=== PATIENT | female | born 1980 | race Caucasian/White ===

== ENCOUNTER 2018-06-08 10:14 | Day surgery (SDC) | payer BC ==
[~2018-06-08 10:14] MED LIST: Doxycycline 100 MG Cap PO ONE
--- NOTE | 2018-06-08 11:06 | PCM.PREANE ---
Preanesthetic Assessment - Anesthesia/Transfusion/Family Hx Anesthesia History: Prior Anesthesia Without Reaction Family History of Anesthesia Reaction: No Transfusion History: No Prior Transfusion(s) Intubation History: Unknown - Review of Systems General: No Symptoms Pulmonary: No Symptoms Cardiovascular: No Symptoms Gastrointestinal: No Symptoms Neurological: No Symptoms Other: Reports: None - Physical Assessment O2 Sat by Pulse Oximetry: 100 Respiratory Rate: 16 Vital Signs: Last Vital Signs Temp 36.4 C 06/08/18 10:31 Pulse 81 06/08/18 10:31 Resp 16 06/08/18 10:31 BP 129/74 06/08/18 10:31 Pulse Ox 100 06/08/18 10:31 Height: 1.73 m Weight: 101.151 kg ASA Class: 2 Mental Status: Alert & Oriented x3 Airway Class: Mallampati = 2 Dentition: Reports: Normal Dentition Thyro-Mental Finger Breadths: 3 Mouth Opening Finger Breadths: 3 ROM/Head Extension: Full Lungs: Clear to Auscultation, Normal Respiratory Effort Cardiovascular: Regular Rate, Regular Rhythm - Lab Values: Laboratory Last Values WBC 7.46 K/uL (4.0-11.0) 06/08/18 10:43 RBC 4.24 M/uL (4.30-5.90) L 06/08/18 10:43 Hgb 13.0 g/dL (12.0-16.0) 06/08/18 10:43 Hct 38.6 % (36.0-46.0) 06/08/18 10:43 MCV 91.0 fL (80.0-98.0) 06/08/18 10:43 MCH 30.7 pg (27.0-32.0) 06/08/18 10:43 MCHC 33.7 g/dL (31.0-37.0) 06/08/18 10:43 RDW Std Deviation 43.1 fl (28.0-62.0) 06/08/18 10:43 RDW Coeff of Velia 13 % (11.0-15.0) 06/08/18 10:43 Plt Count 262 K/uL (150-400) 06/08/18 10:43 MPV 9.10 fL (7.40-12.00) 06/08/18 10:43 Neut % (Auto) 61.4 % (48.0-80.0) 06/08/18 10:43 Lymph % (Auto) 29.1 % (16.0-40.0) 06/08/18 10:43 Mathews % (Auto) 7.6 % (0.0-15.0) 06/08/18 10:43 Eos % (Auto) 1.6 % (0.0-7.0) 06/08/18 10:43 Baso % (Auto) 0.3 % (0.0-1.5) 06/08/18 10:43 Neut # (Auto) 4.6 K/uL (1.4-5.7) 06/08/18 10:43 Lymph # (Auto) 2.2 K/uL (0.6-2.4) 06/08/18 10:43 Mathews # (Auto) 0.6 K/uL (0.0-0.8) 06/08/18 10:43 Eos # (Auto) 0.1 K/uL (0.0-0.7) 06/08/18 10:43 Baso # (Auto) 0.0 K/uL (0.0-0.1) 06/08/18 10:43 Nucleated RBC % 0.0 /100WBC 06/08/18 10:43 Nucleated RBCs # 0 K/uL 06/08/18 10:43 - Allergies Allergies/Adverse Reactions: Allergies Allergy/AdvReac Type Severity Reaction Status Date / Time No Known Allergies Allergy Verified 06/05/18 12:48 - Blood Blood Available: No - Anesthesia Plan Pre-Op Medication Ordered: None - Acknowledgements Anesthesia Type Planned: General Anesthesia Pt an Appropriate Candidate for the Planned Anesthesia: Yes Alternatives and Risks of Anesthesia Discussed w Pt/Guardian: Yes Pt/Guardian Understands and Agrees with Anesthesia Plan: Yes 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: , Spontaneous Psychiatric History: Reports: Anxiety Endocrine/Metabolic History: Reports: Hypothyroidism, Obesity/BMI 30+ - Past Surgical History HEENT Surgical History: Reports: Tonsillectomy GI Surgical History: Reports: Appendectomy, Bariatric Procedure, Other (See Below) Other GI Surgeries/Procedures: Lap band bariatric surgery- band removed 2 years later Female Surgical History: Reports: Dilitation & Evacuation (x2) Musculoskeletal Surgical History: Reports: Other (See Below) Other Musculoskeletal Surgeries/Procedures:: repair of dislocated knee, partial dislocation of other knee - SUBSTANCE USE Smoking Status *Q: Never Smoker Recreational Drug Use History: No - HOME MEDS Home Medications: Home Meds Acetaminophen [Tylenol] 325 mg PO TID PRN 06/05/18 [History] Doxylamine Succinate [Unisom] 25 mg PO BEDTIME PRN 06/05/18 [History] Escitalopram [Lexapro] 10 mg PO DAILY 06/05/18 [History] Levothyroxine Sodium [Synthroid] 25 mcg PO DAILY 06/05/18 [History] Pnv No.95/Ferrous Fum/Folic AC [ Caplet] 1 tab PO DAILY 06/05/18 [ History] Vitamin B6-pyridOXINE 100 mg PO DAILY 06/05/18 [History] - CURRENT (IN HOUSE) MEDS Current Meds: Current Medications Discontinued Medications Doxycycline Hyclate (Vibramycin) 200 mg PO ONETIME ONE Stop: 06/08/18 09:13 Last Admin: 06/08/18 10:38 Dose: 200 mg
[2018-06-08] MEDS ORDERED: Methylergonovine 0.2 MG/1 ML Amp ONE (13:04)
[2018-06-08] MEDS ORDERED: Misoprostol 200 MCG Tab ONE (13:10)
--- NOTE | 2018-06-08 13:44 | PCM.OPNOTE ---
- General Post-Op/Procedure Note Date of Surgery/Procedure: 06/08/18 Operative Procedure(s): Suction , Dilatation and Currettage Findings: Moderate amount of POC and Bleeding noted Due to bleeding Methergine given and also Cytotec 600mcg per rectum Pre Op Diagnosis: Missed Post-Op Diagnosis: Missed Anesthesia Technique: Other (see below) (General) Primary Surgeon: Campbell Caceres Pathology: product of conception also sent for karyotype and microarray Fluid Replacement, Intraop: 1,200 EBL in mLs: 400 Complications: None Condition: Good
[2018-06-08] MEDS ORDERED: Ondansetron 4 MG/2 ML SDV ONE (13:46)
[2018-06-08] MEDS ORDERED: Lidocaine 2% 5 ML SDV ONE (13:46)
[2018-06-08] MEDS ORDERED: Acetaminophen/oxyCODONE 325-5 MG Tab PO PRN (13:46)
[2018-06-08] MEDS ORDERED: Midazolam 1 MG/ML 2 ML SDV ONE (13:46)
[2018-06-08] MEDS ORDERED: fentaNYL 100 MCG/2 ML SDV ONE (13:46)
[2018-06-08] MEDS ORDERED: Propofol 200 MG/20 ML SDV ONE (13:46)
[2018-06-08] MEDS ORDERED: ePHEDrine 50 MG/ML SDV ONE (13:46)
--- NOTE | 2018-06-08 14:03 | PCM.POSTAN ---
POST ANESTHESIA ASSESSMENT - MENTAL STATUS Mental Status: Alert, Oriented - RESPIRATORY Respiratory Status: Respiratory Rate WNL, Airway Patent, O2 Saturation Stable - CARDIOVASCULAR CV Status: Pulse Rate WNL, Blood Pressure Stable - GASTROINTESTINAL GI Status: No Symptoms - PAIN Pain Score: 0 - POST OP HYDRATION Hydration Status: Adequate & Stable
--- NOTE | 2018-06-09 12:30 | OR ---
SURGEON: HALIE DRUMMOND DATE OF PROCEDURE: 06/08/2018 PREOPERATIVE DIAGNOSES: 37-year-old with missed . POSTOPERATIVE DIAGNOSIS: 37-year-old with missed . PROCEDURE: Suction dilatation and curettage. IV FLUIDS: 1200. ESTIMATED BLOOD LOSS: 400. FINDINGS: An 8-week sized anteverted uterus. Suction yielded moderate amount of products of conception. She had some bleeding afterwards, she was given Methergine IM and also given Cytotec. The patient tolerated the procedure well. BRIEF HISTORY: She is 37-year-old with a history of recurrent miscarriages. She came in for a routine OB visit and felt she was not dated properly based on previous USS and requested an ultrasound. She had an ultrasound done that showed only gestational sac, no IUP. She had an ultrasound done previously that showed an IUP. As a result of this, she was diagnosed as having a missed . She was counseled for options, which include conservative management versus medical management versus surgery. The patient opted for surgery. She was explained the risks, benefits, and alternatives and she desired to proceed. DESCRIPTION OF PROCEDURE: The patient was taken to the operating room where general anesthesia was performed without difficulty. She was prepared and draped in the dorsal lithotomy position with Jay stirrups. The speculum was used to expose the cervix. The tenaculum was used to grasp the anterior lip of the cervix. The cervix was dilated to accommodate the size 9 curved curette. The curette was connected to a suction pump and suction was done in rotative motion. Then, a size 4 sharp curette was used, which was used to curette all the corners of the uterus. Then, the suction was then placed back in and suction was done. The patient was noted to have some bleeding and Methergine was given. Also Cytotec was given. The patient tolerated the procedure well. All instrument and pad counts were correct x2. The patient was taken to the recovery room in stable condition. MOHIT BARRERA /[id number] MTDD
== END 2018-06-08 15:01 | disposition home or self-care (01) ==
LOC: MW.SDS 10:14
PROVIDERS: ATTEND Obstetrics & Gynecology
DX: O02.1 Missed abortion (principal); E03.9 Hypothyroidism, unspecified; F41.9 Anxiety disorder, unspecified; Z79.899 Other long term (current) drug therapy
CPT/HCPCS: 36415; 59820; 85025; 86850; 86900; 86901; 88233; 88305; A9270; J2001; J2210; J2250; J2405; J2704; J3010; 01965

== ENCOUNTER 2019-02-09 10:09 | Day surgery (SDC) | payer BC ==
[2019-02-09] MEDS ORDERED: Doxycycline 200 MG in Dextrose 5% in Water 250 ML IV SCH ×2 (11:00)
[2019-02-09] MEDS ORDERED: Lactated Ringers 1,000 ML IV SCH (11:00)
--- NOTE | 2019-02-09 11:21 | PCM.PREANE ---
Preanesthetic Assessment - Anesthesia/Transfusion/Family Hx Anesthesia History: Prior Anesthesia Without Reaction Family History of Anesthesia Reaction: No Transfusion History: No Prior Transfusion(s) Intubation History: Unknown - Review of Systems General: No Symptoms Pulmonary: No Symptoms Cardiovascular: No Symptoms Gastrointestinal: No Symptoms Neurological: No Symptoms Other: Reports: None - Physical Assessment Height: 5 ft 10 in Weight: 99.79 kg ASA Class: 2 Mental Status: Alert & Oriented x3 Airway Class: Mallampati = 2 Dentition: Reports: Normal Dentition Thyro-Mental Finger Breadths: 3 Mouth Opening Finger Breadths: 3 ROM/Head Extension: Full Lungs: Clear to Auscultation, Normal Respiratory Effort Cardiovascular: Regular Rate, Regular Rhythm - Allergies Allergies/Adverse Reactions: Allergies Allergy/AdvReac Type Severity Reaction Status Date / Time metal Allergy Rash Uncoded 02/09/19 11:02 - Blood Blood Available: No - Anesthesia Plan Pre-Op Medication Ordered: None - Acknowledgements Anesthesia Type Planned: General Anesthesia Pt an Appropriate Candidate for the Planned Anesthesia: Yes Alternatives and Risks of Anesthesia Discussed w Pt/Guardian: Yes Pt/Guardian Understands and Agrees with Anesthesia Plan: Yes 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 band placement and removal) Female Surgical History: Reports: D&C (x3) Other Female Surgeries/Procedures: hx of multiple D&C's Musculoskeletal Surgical History: Reports: Other (See Below) Other Musculoskeletal Surgeries/Procedures:: bilateral knee surgeries, ? patella stabilization - SUBSTANCE USE Smoking Status *Q: Never Smoker Recreational Drug Use History: No - HOME MEDS Home Medications: Home Meds Escitalopram [Lexapro] 20 mg PO DAILY 30 Days #30 tablet 06/08/18 [Rx] Levothyroxine 150 mcg PO DAILY 02/09/19 [History] - CURRENT (IN HOUSE) MEDS Current Meds: Current Medications Doxycycline Hyclate 200 mg/ (Dextrose/Water) 250 mls @ 125 mls/hr IV Q12H RIKY Lactated Ringer's (Ringers, Lactated) 1,000 mls @ 125 mls/hr IV ASDIRECTED RIKY
[2019-02-09] MEDS ORDERED: Propofol 200 MG/20 ML SDV ONE (11:48)
[2019-02-09] MEDS ORDERED: Dexamethasone 4 MG/ML 5 ML MDV ONE (11:48)
[2019-02-09] MEDS ORDERED: Ondansetron 4 MG/2 ML SDV ONE (11:48)
[2019-02-09] MEDS ORDERED: fentaNYL 250 MCG/5 ML SDV ONE (11:48)
[2019-02-09] MEDS ORDERED: Midazolam 1 MG/ML 2 ML SDV ONE (11:48)
[2019-02-09] MEDS ORDERED: Sodium Chloride 0.9% 10 ML SDV IV PRN (12:14)
[2019-02-09] MEDS ORDERED: Sodium Chloride 0.9% 2.5 ML Syringe FLUSH PRN (12:14)
[2019-02-09] MEDS ORDERED: Sodium Chloride 0.9% 10 ML Syringe FLUSH PRN (12:14)
[2019-02-09] MEDS ORDERED: Ketorolac 30 MG/ML SDV ONE (12:25)
[2019-02-09] MEDS ORDERED: Acetaminophen/oxyCODONE 325-5 MG Tab PO PRN (13:19)
[2019-02-09] MEDS ORDERED: Morphine 4 MG/ML Syringe IVPUSH PRN (13:19)
[2019-02-09] MEDS ORDERED: Ketorolac 30 MG/ML SDV IVPUSH ONE (13:19)
[2019-02-09] MEDS ORDERED: Ketorolac 30 MG/ML SDV IVPUSH PRN (13:19)
[2019-02-09] MEDS ORDERED: Ondansetron 4 MG/2 ML SDV IVPUSH PRN (13:19)
[2019-02-09] MEDS ORDERED: Promethazine 25 MG/ML SDV IM PRN (13:19)
[2019-02-09] MEDS ORDERED: Hetastarch 6% in NS 500 ML Bag IV ONE (13:29)
[2019-02-09] MEDS ORDERED: Glycopyrrolate 0.2 MG/ML SDV ONE (13:53)
[2019-02-09] MEDS ORDERED: Methylergonovine 0.2 MG/1 ML Amp IM ONE ×2 (14:04→15:01)
--- NOTE | 2019-02-09 14:13 | PCM.OPNOTE ---
- General Post-Op/Procedure Note Date of Surgery/Procedure: 02/09/19 Operative Procedure(s): Suction , Dilatation and curettage Findings: Product of conception 8 week sized anteverted uterus Pre Op Diagnosis: Missed Post-Op Diagnosis: Missed Anesthesia Technique: General ET Tube Primary Surgeon: Campbell Caceres Anesthesia Provider: Jeanie CEBALLOS Stacker Tender: Mary Jane HEIN Pathology: Product of conception Output, Urine Amount: 800 EBL in mLs: 500 Complications: None Condition: Good
--- NOTE | 2019-02-09 14:21 | PCM.SN ---
- Free Text/Narrative Note: Informed by PACU that i should come to evaluate patient Patient seen at bedside , Aneasthesia team , Dr Le and Jaxson with patient Patient is hypotensive with Bps of 70s - 80s/ 30 - 40s O sat: 100% HR: 61 Exam: General: responding to conversation but lethargic Chest: CTA BL CVS: S1 S2 no murmurs Abdomen; Flat , soft and non-distended or tender Pelvic: 8 week sized anteverted uterus , no active bleeding Stat USS ordered: Normal appearing uterus, Endometrium slightly heterogenous with fluid with No fluid noted in the anterior or posterior cul-de- sac , No fluid in the sanchez's pouch A/P Hypotension s/p D & C Plan Continue IVF bolus Type and Cross , will give O negative blood Monitor vital signs , if still hypotensive will give vasopressors H & H Will transfer to ICU when stable
[2019-02-09 14:26] LABS: BLOOD UREA NITROGEN,BUN 10 mg/dL (7.0-18.0); CARBON DIOXIDE,CO2 22.9 mmol/L (21.0-32.0); CHLORIDE,CL 105 mmol/L (98-107); GLUCOSE RANDOM 111 mg/dL (74-106); SODIUM,NA 137 mmol/L (136-145)
--- NOTE | 2019-02-09 14:29 | US ---
EXAM DATE: 02/09/19 PATIENT'S AGE: 38 Pelvic ultrasound: Multiple real-time images were obtained transvaginally. Findings: No ascites is seen. Minimal fluid is seen within the endometrial cavity. No focal myometrial abnormality is seen. Impression: 1. Small amount of fluid within the endometrium most likely due to blood. 2. No ascites is seen. Diagnostic code #2 MTDD
--- NOTE | 2019-02-09 14:45 | PCM.SN ---
- Free Text/Narrative Note: Called by COMMUNITY SERVICES MANAGER Lucy to evaluate the patient. On arrival the pt is visually pale, lethargic, and diaphoretic. VS HR 50's, SBP 70-80's, SpO2 92% on RA, RR 12. Hespan 250mL IV ordered, 18g IV started to Rt EJ; 12mL of blood was drawn at this time for lab studies, NS 1000mL bolus running. Dr Caceres was called STAT to PACU to evaluate the patient. On her arrival STAT ultrasound was performed in PACU, and Dr Caceres ordered 1 units PRBC uncrossed matched to be given now. Transexamic acid 1gram slow IVP given. Currently, the patient appears much better. Her cheeks are pink, she feels less lethargic, and no nausea. VS - 64 SR, RR 14, SpO2 - 100% on NC at 3 LPM, SBP 90's for the last [address] Caceres decision on admission status.
--- NOTE | 2019-02-09 14:50 | PCM.POSTAN ---
POST ANESTHESIA ASSESSMENT - MENTAL STATUS Mental Status: Alert, Oriented - VITAL SIGNS Vital Signs: Last Vital Signs Temp 97.0 F 02/09/19 13:01 Pulse 61 02/09/19 14:36 Resp 14 02/09/19 14:36 BP 100/47 L 02/09/19 14:36 Pulse Ox 100 02/09/19 14:36 - RESPIRATORY Respiratory Status: Respiratory Rate WNL, Airway Patent, O2 Saturation Stable - CARDIOVASCULAR CV Status: Pulse Rate WNL, Blood Pressure Stable, Low Blood Pressure (See Progress Note) - GASTROINTESTINAL GI Status: No Symptoms - PAIN Pain Score: 0 - POST OP HYDRATION Hydration Status: Adequate & Stable
[2019-02-09] MEDS ORDERED: Sodium Chloride 0.9% 1,000 ML IV SCH (15:30)
[2019-02-09 16:36] LABS: BLOOD UREA NITROGEN,BUN 10 mg/dL (7.0-18.0); CARBON DIOXIDE,CO2 23.6 mmol/L (21.0-32.0); CHLORIDE,CL 105 mmol/L (98-107); GLUCOSE RANDOM 96 mg/dL (74-106); POTASSIUM,K 4.1 mmol/L (3.5-5.1); SODIUM,NA 138 mmol/L (136-145)
--- NOTE | 2019-02-09 16:59 | PCM48HPAN ---
Post Anesthesia Note - EVALUATION WITHIN 48HRS OF ANESTHETIC Vital Signs in Normal Range: Yes Patient Participated in Evaluation: Yes Respiratory Function Stable: Yes Airway Patent: Yes Cardiovascular Function Stable: Yes Hydration Status Stable: Yes Pain Control Satisfactory: Yes Nausea and Vomiting Control Satisfactory: Yes Mental Status Recovered: Yes Vital Signs: Last Vital Signs Temp 97.2 F 02/09/19 15:10 Pulse 65 02/09/19 15:10 Resp 14 02/09/19 15:10 BP 94/37 L 02/09/19 15:10 Pulse Ox 100 02/09/19 15:10 - COMMENTS/OBSERVATIONS Free Text/Narrative:: Patient appears much better this evening and states she is feeling much better. While at the bedside I had nursing check a set of orthostatic vital signs. Her standing BP was 111/52. I explained to the patient that after reviewing all the lab data that she may have had a severe hypotension episode due to the Cytotec that she received at the end of the procedure. The patient expressed understanding.
[2019-02-09] MEDS: Acetaminophen/oxyCODONE 325-5 MG Tab PO PRN ×2 (17:00→21:38)
[2019-02-09] MEDS ORDERED: Doxycycline 100 MG Cap PO ONE (18:30)
--- NOTE | 2019-02-10 08:13 | PCM.PN ---
<Mary Jane Jovel E - Last Filed: 02/10/19 08:25> - General Info Date of Service: 02/10/19 Admission Dx/Problem (Free Text): s/p D & C after missed Subjective Update: Juju is doing well this AM. States she is feeling fine and is ready to get home. Per pt and nurse report, pt ambulated 5 laps around ICU and denied any lightheadedness or dizziness during ambulation. Urinating well. Has not eaten since yesterday so is very hungry. Bleeding is minimal per nurse and pt report Functional Status: Reports: Pain Controlled, Ambulating, Urinating, Incentive Spirometry - Review of Systems General: Reports: Fatigue. Denies: Fever, Weakness, Chills HEENT: Denies: Visual Changes Pulmonary: Denies: Shortness of Breath Cardiovascular: Denies: Chest Pain, Lightheadedness Gastrointestinal: Denies: Abdominal Pain Genitourinary: Denies: Dysuria Neurological: Denies: Confusion, Dizziness, Headache, Numbness, Tingling Psychiatric: Denies: Confusion - Patient Data Vitals - Most Recent: Last Vital Signs Temp 36.4 C 02/10/19 06:37 Pulse 65 02/09/19 15:10 Resp 14 02/10/19 06:37 BP 106/55 L 02/10/19 06:37 Pulse Ox 96 02/10/19 06:37 Weight - Most Recent: 98.6 kg I&O - Last 24 Hours: Intake & Output 02/09/19 02/10/19 02/10/19 22:59 06:59 14:59 Intake Total 144 2600 Output Total 750 2300 Balance -606 300 Lab Results Last 24 Hours: Laboratory Results - last 24 hr 02/09/19 02/09/19 02/09/19 Range/Units 11:08 13:40 13:40 WBC 6.58 (4.0-11.0) K/uL RBC 3.98 L (4.30-5.90) M/uL Hgb 12.2 (12.0-16.0) g/dL Hct 36.1 (36.0-46.0) % MCV 90.7 (80.0-98.0) fL MCH 30.7 (27.0-32.0) pg MCHC 33.8 (31.0-37.0) g/dL RDW Std Deviation 42.7 (28.0-62.0) fl RDW Coeff of Velia 13 (11.0-15.0) % Plt Count 247 (150-400) K/uL MPV 9.40 (7.40-12.00) fL Neut % (Auto) (48.0-80.0) % Lymph % (Auto) (16.0-40.0) % [place] % (Auto) (0.0-15.0) % Eos % (Auto) (0.0-7.0) % Baso % (Auto) (0.0-1.5) % Neut # (Auto) (1.4-5.7) K/uL Lymph # (Auto) (0.6-2.4) K/uL [place] # (Auto) (0.0-0.8) K/uL Eos # (Auto) (0.0-0.7) K/uL Baso # (Auto) (0.0-0.1) K/uL Nucleated RBC % 0.0 /100WBC Nucleated RBCs # 0 K/uL Sodium (136-145) mmol/L Potassium (3.5-5.1) mmol/L Chloride (98-107) mmol/L Carbon Dioxide (21.0-32.0) mmol/L BUN (7.0-18.0) mg/dL Creatinine (0.6-1.0) mg/dL Est Cr Clr Drug Dosing mL/min Estimated GFR (MDRD) ml/min Glucose (74-106) mg/dL Calcium (8.5-10.1) mg/dL Blood Type Cancelled O POSITIVE Antibody Screen Cancelled NEGATIVE Crossmatch See Detail See Detail 02/09/19 02/09/19 02/09/19 Range/Units 13:44 13:44 16:03 WBC 8.56 (4.0-11.0) K/uL RBC 3.43 L (4.30-5.90) M/uL Hgb 10.5 L 12.5 (12.0-16.0) g/dL Hct 31.2 L 37.4 (36.0-46.0) % MCV 91.0 (80.0-98.0) fL MCH 30.6 (27.0-32.0) pg MCHC 33.7 (31.0-37.0) g/dL RDW Std Deviation 43.1 (28.0-62.0) fl RDW Coeff of Velia 13 (11.0-15.0) % Plt Count 254 (150-400) K/uL MPV 9.70 (7.40-12.00) fL Neut % (Auto) 58.5 (48.0-80.0) % Lymph % (Auto) 33.2 (16.0-40.0) % [place] % (Auto) 6.8 (0.0-15.0) % Eos % (Auto) 1.3 (0.0-7.0) % Baso % (Auto) 0.2 (0.0-1.5) % Neut # (Auto) 5.0 (1.4-5.7) K/uL Lymph # (Auto) 2.8 H (0.6-2.4) K/uL [place] # (Auto) 0.6 (0.0-0.8) K/uL Eos # (Auto) 0.1 (0.0-0.7) K/uL Baso # (Auto) 0.0 (0.0-0.1) K/uL Nucleated RBC % 0.0 /100WBC Nucleated RBCs # 0 K/uL Sodium 137 (136-145) mmol/L Potassium 4.0 (3.5-5.1) mmol/L Chloride 105 (98-107) mmol/L Carbon Dioxide 22.9 (21.0-32.0) mmol/L BUN 10 (7.0-18.0) mg/dL Creatinine 0.6 (0.6-1.0) mg/dL Est Cr Clr Drug Dosing 140.17 mL/min Estimated GFR (MDRD) > 60.0 ml/min Glucose 111 H (74-106) mg/dL Calcium 7.9 L (8.5-10.1) mg/dL Blood Type Antibody Screen Crossmatch 02/09/19 02/10/19 Range/Units 16:03 05:48 WBC (4.0-11.0) K/uL RBC (4.30-5.90) M/uL Hgb 10.4 L (12.0-16.0) g/dL Hct 30.8 L (36.0-46.0) % MCV (80.0-98.0) fL MCH (27.0-32.0) pg MCHC (31.0-37.0) g/dL RDW Std Deviation (28.0-62.0) fl RDW Coeff of Velia (11.0-15.0) % Plt Count (150-400) K/uL MPV (7.40-12.00) fL Neut % (Auto) (48.0-80.0) % Lymph % (Auto) (16.0-40.0) % [place] % (Auto) (0.0-15.0) % Eos % (Auto) (0.0-7.0) % Baso % (Auto) (0.0-1.5) % Neut # (Auto) (1.4-5.7) K/uL Lymph # (Auto) (0.6-2.4) K/uL [place] # (Auto) (0.0-0.8) K/uL Eos # (Auto) (0.0-0.7) K/uL Baso # (Auto) (0.0-0.1) K/uL Nucleated RBC % /100WBC Nucleated RBCs # K/uL Sodium 138 (136-145) mmol/L Potassium 4.1 (3.5-5.1) mmol/L Chloride 105 (98-107) mmol/L Carbon Dioxide 23.6 (21.0-32.0) mmol/L BUN 10 (7.0-18.0) mg/dL Creatinine 0.7 (0.6-1.0) mg/dL Est Cr Clr Drug Dosing 120.15 mL/min Estimated GFR (MDRD) > 60.0 ml/min Glucose 96 (74-106) mg/dL Calcium 7.8 L (8.5-10.1) mg/dL Blood Type Antibody Screen Crossmatch Med Orders - Current: Current Medications Sodium Chloride (Normal Saline) 1,000 mls @ 125 mls/hr IV ASDIRECTED [facility] Last Admin: 02/09/19 15:31 Dose: 125 mls/hr Ketorolac Tromethamine (Toradol) 30 mg IVPUSH Q6H PRN PRN Reason: Pain (severe 7-10) Stop: 02/14/19 13:20 Morphine Sulfate (Morphine) 4 mg IVPUSH Q2H PRN PRN Reason: Pain (severe 7-10) Ondansetron HCl (Zofran) 4 mg IVPUSH Q6H PRN PRN Reason: Nausea/Vomiting Oxycodone/Acetaminophen (Percocet 325-5 Mg) 1 tab PO Q4H PRN PRN Reason: Pain (moderate 4-6) Oxycodone/Acetaminophen (Percocet 325-5 Mg) 2 tab PO Q4H PRN PRN Reason: Pain (moderate 4-6) Last Admin: 02/09/19 21:38 Dose: 2 tab Promethazine HCl (Phenergan) 25 mg IM Q6H PRN PRN Reason: Nausea/Vomiting Sodium Chloride (Saline Flush) 10 ml FLUSH ASDIRECTED PRN PRN Reason: Keep Vein Open Sodium Chloride (Saline Flush) 2.5 ml FLUSH ASDIRECTED PRN PRN Reason: Keep Vein Open Sodium Chloride (Normal Saline) 10 ml IV ASDIRECTED PRN PRN Reason: IV Use Discontinued Medications Dexamethasone (Dexamethasone) Confirm Administered Dose 20 mg .ROUTE .STK-MED ONE Stop: 02/09/19 11:49 Doxycycline Hyclate (Vibramycin) 100 mg PO ONETIME ONE Stop: 02/09/19 18:31 Last Admin: 02/09/19 18:16 Dose: 100 mg Fentanyl (Sublimaze) Confirm Administered Dose 250 mcg .ROUTE .STK-MED ONE Stop: 02/09/19 11:49 Glycopyrrolate (Robinul) Confirm Administered Dose 0.6 mg .ROUTE .STK-MED ONE Stop: 02/09/19 13:54 Hetastarch/Sodium Chloride (Hetastarch 6% In Normal Saline) 500 ml IV ONETIME ONE Stop: 02/09/19 13:30 Last Admin: 02/09/19 15:55 Dose: Not Given Doxycycline Hyclate 200 mg/ (Dextrose/Water) 250 mls @ 125 mls/hr IV Q12H [facility] Last Admin: 02/09/19 15:22 Dose: Not Given Lactated Ringer's (Ringers, Lactated) 1,000 mls @ 125 mls/hr IV ASDIRECTED [facility] Last Admin: 02/09/19 11:00 Dose: 125 mls/hr Ketorolac Tromethamine (Toradol) Confirm Administered Dose 30 mg .ROUTE .STK- MED ONE Stop: 02/09/19 12:26 Ketorolac Tromethamine (Toradol) 30 mg IVPUSH ONETIME ONE Stop: 02/09/19 13:20 Last Admin: 02/09/19 15:22 Dose: Not Given Lidocaine HCl (Xylocaine-Mpf 1%) Confirm Administered Dose 5 ml .ROUTE .STK-MED ONE Stop: 02/09/19 11:49 Methylergonovine Maleate (Methergine) 0.2 mg IM Q4H ONE Stop: 02/09/19 14:05 Last Admin: 02/09/19 14:24 Dose: 0.2 mg Midazolam HCl (Versed 1 Mg/Ml) Confirm Administered Dose 2 mg .ROUTE .STK-MED ONE Stop: 02/09/19 11:49 Ondansetron HCl (Zofran) Confirm Administered Dose 4 mg .ROUTE .STK-MED ONE Stop: 02/09/19 11:49 Propofol (Diprivan 20 Ml) Confirm Administered Dose 200 mg .ROUTE .STK-MED ONE Stop: 02/09/19 11:49 Tranexamic Acid (Cyklokapron) Confirm Administered Dose 1,000 mg .ROUTE .STK- MED ONE Stop: 02/09/19 13:46 - Exam General: Alert, Oriented, Cooperative, No Acute Distress HEENT: Pupils Equal, Pupils Reactive, EOMI, Mucous Membr. Moist/Comobabi Neck: Supple Lungs: Clear to Auscultation, Normal Respiratory Effort Cardiovascular: Regular Rate, Regular Rhythm GI/Abdominal Exam: Soft, Non-Tender, No Distention (Female) Exam: Other (Uterus difficult to palpate on exam, no tenderness to palpation) Skin: Warm, Dry, Intact Neurological: No New Focal Deficit Psy/Mental Status: Alert, Normal Affect, Normal Mood - Problem List & Annotations (1) Missed SNOMED Code(s): 51595970 Code(s): O02.1 - MISSED Status: Acute Current Visit: Yes - Problem List Review Problem List Initiated/Reviewed/Updated: Yes - Assessment Assessment:: Juju is a 38 yo G7 now P2052 post-op day 1 s/p D&C after missed . Patient became hypotensive a few hours post-D&C yesterday with BPs in the 70s - 80s/ 30 - 40s, saturating at 100% O2 on RA with HR in the 60s. Bedside ultrasound did not show any free fluid in the anterior or posterior cul-de-sacs or Nolan's pouch. She was given blood products and fluid at that time. H/H done after administration of blood products was 12.5/37.4. This morning's H/H is down to 10.4/30.8 and BPs is 106/55. Pt reports scant bleeding and is asymptomatic. We observed her overnight in the ICU. - Plan Plan:: Patient is hemodynamically stable at this time with BP back at her baseline and regular HR. Discharge today. Precautions to return to care if she becomes lightheaded, dizzy , SOB, fever over 101F, rigid and tender abdomen, painful abdomen. Pain can be managed with Tylenol and/or ibuprofen at home PRN. Tylenol PM appropriate for sleep aid. Follow up in clinic with Dr. Mccracken in 2 weeks. <Campbell Caceres - Last Filed: 02/10/19 09:00> - General Info Subjective Update: Patient seen at bedside , no acute overnight events , she is ambulating , voiding and tolerating regular diet , bleeding is minimal - Patient Data Vitals - Most Recent: Last Vital Signs Temp 37.0 C 02/10/19 08:54 Pulse 84 02/10/19 08:54 Resp 20 02/10/19 08:54 BP 116/59 L 02/10/19 08:54 Pulse Ox 97 02/10/19 08:54 I&O - Last 24 Hours: Intake & Output 02/09/19 02/10/19 02/10/19 22:59 06:59 14:59 Intake Total 144 2600 Output Total 750 2300 Balance -606 300 Lab Results Last 24 Hours: Laboratory Results - last 24 hr 02/09/19 02/09/19 02/09/19 Range/Units 11:08 13:40 13:40 WBC 6.58 (4.0-11.0) K/uL RBC 3.98 L (4.30-5.90) M/uL Hgb 12.2 (12.0-16.0) g/dL Hct 36.1 (36.0-46.0) % MCV 90.7 (80.0-98.0) fL MCH 30.7 (27.0-32.0) pg MCHC 33.8 (31.0-37.0) g/dL RDW Std Deviation 42.7 (28.0-62.0) fl RDW Coeff of Velia 13 (11.0-15.0) % Plt Count 247 (150-400) K/uL MPV 9.40 (7.40-12.00) fL Neut % (Auto) (48.0-80.0) % Lymph % (Auto) (16.0-40.0) % [place] % (Auto) (0.0-15.0) % Eos % (Auto) (0.0-7.0) % Baso % (Auto) (0.0-1.5) % Neut # (Auto) (1.4-5.7) K/uL Lymph # (Auto) (0.6-2.4) K/uL [place] # (Auto) (0.0-0.8) K/uL Eos # (Auto) (0.0-0.7) K/uL Baso # (Auto) (0.0-0.1) K/uL Nucleated RBC % 0.0 /100WBC Nucleated RBCs # 0 K/uL Sodium (136-145) mmol/L Potassium (3.5-5.1) mmol/L Chloride (98-107) mmol/L Carbon Dioxide (21.0-32.0) mmol/L BUN (7.0-18.0) mg/dL Creatinine (0.6-1.0) mg/dL Est Cr Clr Drug Dosing mL/min Estimated GFR (MDRD) ml/min Glucose (74-106) mg/dL Calcium (8.5-10.1) mg/dL Blood Type Cancelled O POSITIVE Antibody Screen Cancelled NEGATIVE Crossmatch See Detail See Detail 02/09/19 02/09/19 02/09/19 Range/Units 13:44 13:44 16:03 WBC 8.56 (4.0-11.0) K/uL RBC 3.43 L (4.30-5.90) M/uL Hgb 10.5 L 12.5 (12.0-16.0) g/dL Hct 31.2 L 37.4 (36.0-46.0) % MCV 91.0 (80.0-98.0) fL MCH 30.6 (27.0-32.0) pg MCHC 33.7 (31.0-37.0) g/dL RDW Std Deviation 43.1 (28.0-62.0) fl RDW Coeff of Velia 13 (11.0-15.0) % Plt Count 254 (150-400) K/uL MPV 9.70 (7.40-12.00) fL Neut % (Auto) 58.5 (48.0-80.0) % Lymph % (Auto) 33.2 (16.0-40.0) % [place] % (Auto) 6.8 (0.0-15.0) % Eos % (Auto) 1.3 (0.0-7.0) % Baso % (Auto) 0.2 (0.0-1.5) % Neut # (Auto) 5.0 (1.4-5.7) K/uL Lymph # (Auto) 2.8 H (0.6-2.4) K/uL [place] # (Auto) 0.6 (0.0-0.8) K/uL Eos # (Auto) 0.1 (0.0-0.7) K/uL Baso # (Auto) 0.0 (0.0-0.1) K/uL Nucleated RBC % 0.0 /100WBC Nucleated RBCs # 0 K/uL Sodium 137 (136-145) mmol/L Potassium 4.0 (3.5-5.1) mmol/L Chloride 105 (98-107) mmol/L Carbon Dioxide 22.9 (21.0-32.0) mmol/L BUN 10 (7.0-18.0) mg/dL Creatinine 0.6 (0.6-1.0) mg/dL Est Cr Clr Drug Dosing 140.17 mL/min Estimated GFR (MDRD) > 60.0 ml/min Glucose 111 H (74-106) mg/dL Calcium 7.9 L (8.5-10.1) mg/dL Blood Type Antibody Screen Crossmatch 02/09/19 02/10/19 Range/Units 16:03 05:48 WBC (4.0-11.0) K/uL RBC (4.30-5.90) M/uL Hgb 10.4 L (12.0-16.0) g/dL Hct 30.8 L (36.0-46.0) % MCV (80.0-98.0) fL MCH (27.0-32.0) pg MCHC (31.0-37.0) g/dL RDW Std Deviation (28.0-62.0) fl RDW Coeff of Velia (11.0-15.0) % Plt Count (150-400) K/uL MPV (7.40-12.00) fL Neut % (Auto) (48.0-80.0) % Lymph % (Auto) (16.0-40.0) % [place] % (Auto) (0.0-15.0) % Eos % (Auto) (0.0-7.0) % Baso % (Auto) (0.0-1.5) % Neut # (Auto) (1.4-5.7) K/uL Lymph # (Auto) (0.6-2.4) K/uL [place] # (Auto) (0.0-0.8) K/uL Eos # (Auto) (0.0-0.7) K/uL Baso # (Auto) (0.0-0.1) K/uL Nucleated RBC % /100WBC Nucleated RBCs # K/uL Sodium 138 (136-145) mmol/L Potassium 4.1 (3.5-5.1) mmol/L Chloride 105 (98-107) mmol/L Carbon Dioxide 23.6 (21.0-32.0) mmol/L BUN 10 (7.0-18.0) mg/dL Creatinine 0.7 (0.6-1.0) mg/dL Est Cr Clr Drug Dosing 120.15 mL/min Estimated GFR (MDRD) > 60.0 ml/min Glucose 96 (74-106) mg/dL Calcium 7.8 L (8.5-10.1) mg/dL Blood Type Antibody Screen Crossmatch Med Orders - Current: Current Medications Sodium Chloride (Normal Saline) 1,000 mls @ 125 mls/hr IV ASDIRECTED [facility] Last Admin: 02/09/19 15:31 Dose: 125 mls/hr Ketorolac Tromethamine (Toradol) 30 mg IVPUSH Q6H PRN PRN Reason: Pain (severe 7-10) Stop: 02/14/19 13:20 Morphine Sulfate (Morphine) 4 mg IVPUSH Q2H PRN PRN Reason: Pain (severe 7-10) Ondansetron HCl (Zofran) 4 mg IVPUSH Q6H PRN PRN Reason: Nausea/Vomiting Oxycodone/Acetaminophen (Percocet 325-5 Mg) 1 tab PO Q4H PRN PRN Reason: Pain (moderate 4-6) Oxycodone/Acetaminophen (Percocet 325-5 Mg) 2 tab PO Q4H PRN PRN Reason: Pain (moderate 4-6) Last Admin: 02/09/19 21:38 Dose: 2 tab Promethazine HCl (Phenergan) 25 mg IM Q6H PRN PRN Reason: Nausea/Vomiting Sodium Chloride (Saline Flush) 10 ml FLUSH ASDIRECTED PRN PRN Reason: Keep Vein Open Sodium Chloride (Saline Flush) 2.5 ml FLUSH ASDIRECTED PRN PRN Reason: Keep Vein Open Sodium Chloride (Normal Saline) 10 ml IV ASDIRECTED PRN PRN Reason: IV Use Discontinued Medications Dexamethasone (Dexamethasone) Confirm Administered Dose 20 mg .ROUTE .STK-MED ONE Stop: 02/09/19 11:49 Doxycycline Hyclate (Vibramycin) 100 mg PO ONETIME ONE Stop: 02/09/19 18:31 Last Admin: 02/09/19 18:16 Dose: 100 mg Fentanyl (Sublimaze) Confirm Administered Dose 250 mcg .ROUTE .STK-MED ONE Stop: 02/09/19 11:49 Glycopyrrolate (Robinul) Confirm Administered Dose 0.6 mg .ROUTE .STK-MED ONE Stop: 02/09/19 13:54 Hetastarch/Sodium Chloride (Hetastarch 6% In Normal Saline) 500 ml IV ONETIME ONE Stop: 02/09/19 13:30 Last Admin: 02/09/19 15:55 Dose: Not Given Doxycycline Hyclate 200 mg/ (Dextrose/Water) 250 mls @ 125 mls/hr IV Q12H [facility] Last Admin: 02/09/19 15:22 Dose: Not Given Lactated Ringer's (Ringers, Lactated) 1,000 mls @ 125 mls/hr IV ASDIRECTED [facility] Last Admin: 02/09/19 11:00 Dose: 125 mls/hr Ketorolac Tromethamine (Toradol) Confirm Administered Dose 30 mg .ROUTE .STK- MED ONE Stop: 02/09/19 12:26 Ketorolac Tromethamine (Toradol) 30 mg IVPUSH ONETIME ONE Stop: 02/09/19 13:20 Last Admin: 02/09/19 15:22 Dose: Not Given Lidocaine HCl (Xylocaine-Mpf 1%) Confirm Administered Dose 5 ml .ROUTE .STK-MED ONE Stop: 02/09/19 11:49 Methylergonovine Maleate (Methergine) 0.2 mg IM Q4H ONE Stop: 02/09/19 14:05 Last Admin: 02/09/19 14:24 Dose: 0.2 mg Midazolam HCl (Versed 1 Mg/Ml) Confirm Administered Dose 2 mg .ROUTE .STK-MED ONE Stop: 02/09/19 11:49 Ondansetron HCl (Zofran) Confirm Administered Dose 4 mg .ROUTE .STK-MED ONE Stop: 02/09/19 11:49 Propofol (Diprivan 20 Ml) Confirm Administered Dose 200 mg .ROUTE .STK-MED ONE Stop: 02/09/19 11:49 Tranexamic Acid (Cyklokapron) Confirm Administered Dose 1,000 mg .ROUTE .STK- MED ONE Stop: 02/09/19 13:46 - Problem List & Annotations (1) Hypotension after procedure SNOMED Code(s): 54839424368886221 Code(s): I95.81 - POSTPROCEDURAL HYPOTENSION Status: Acute Current Visit : Yes (2) S/P dilatation and curettage SNOMED Code(s): 031174692, 20674064, 520307259 Code(s): Z98.890 - OTHER SPECIFIED POSTPROCEDURAL STATES Status: Acute Current Visit: Yes (3) Missed SNOMED Code(s): 73378546 Code(s): O02.1 - MISSED Status: Acute Current Visit: Yes - My Orders Last 24 Hours: My Active Orders 02/09/19 12:14 Patient Status [ADT] Routine Vital Signs [RC] Q1H Sodium Chloride 0.9% [Normal Saline] 10 ml IV ASDIRECTED PRN Sodium Chloride 0.9% [Saline Flush] 10 ml FLUSH ASDIRECTED PRN Sodium Chloride 0.9% [Saline Flush] 2.5 ml FLUSH ASDIRECTED PRN Peripheral IV Insertion Adult [OM.PC] Urgent Sequential Compression Device [OM.PC] Per Unit Routine 02/09/19 12:15 Antiembolic Devices [RC] PER UNIT ROUTINE 02/09/19 12:50 CHROMO ANALYSIS, POC Routine 02/09/19 13:19 Acetaminophen/oxyCODONE [Percocet 325-5 MG] 1 tab PO Q4H PRN Acetaminophen/oxyCODONE [Percocet 325-5 MG] 2 tab PO Q4H PRN Ketorolac [Toradol] 30 mg IVPUSH Q6H PRN Morphine 4 mg IVPUSH Q2H PRN Ondansetron [Zofran] 4 mg IVPUSH Q6H PRN Promethazine [Phenergan] 25 mg IM Q6H PRN Resuscitation Status Routine 02/09/19 13:20 Antiembolic Devices [RC] PER UNIT ROUTINE Notify Provider Intake and Out [RC] ASDIRECTED Notify Provider Vital Signs [RC] ASDIRECTED Oxygen Therapy [RC] ASDIRECTED RT Incentive Spirometry [RC] Q2HWA Up With Assistance [RC] PER UNIT ROUTINE Up ad Leia [RC] PER UNIT ROUTINE Urinary Catheter Removal [RC] Per Unit Routine Vital Signs [RC] PER UNIT ROUTINE Peripheral IV Discontinue [OM.PC] Routine Sequential Compression Device [OM.PC] Per Unit Routine 02/09/19 13:25 Ready for Discharge [RC] PER UNIT ROUTINE 02/09/19 13:58 Transfuse Red Blood Cells [COMM] Stat 02/09/19 14:05 Urinary Catheter Assessment [RC] Q12H 02/09/19 14:07 Intake and Output Strict [RC] ASDIRECTED 02/09/19 14:15 Insert Haley Catheter [Insert Urinary Catheter] [OM.PC] Q24H 02/09/19 14:56 Patient Status [ADT] Urgent 02/09/19 15:30 Sodium Chloride 0.9% [Normal Saline] 1,000 ml IV ASDIRECTED 02/09/19 Dinner Regular Diet [DIET] - Assessment Assessment:: Patient is stable , will discharge home - Plan Plan:: Will schedule for cardiology evaluation at postop visit
--- NOTE | 2019-02-10 11:28 | OR ---
SURGEON: HALIE DRUMMOND DATE OF PROCEDURE: PREOPERATIVE DIAGNOSIS: A 38-year-old, G7,P2042 weeks 3 days with a missed . POSTOPERATIVE DIAGNOSIS: A 38-year-old, G7,P2042 weeks 3 days with a missed . PROCEDURE: Suction dilatation and curettage. ESTIMATED BLOOD LOSS: 500. IV FLUID: 800. NOTE AND FINDING: An 8-week sized anteverted uterus. Moderate products of conception were retrieved. 800mcg of cytotec placed in the rectum DESCRIPTION OF PROCEDURE: Patient was taken to the operating room where general anesthesia was performed without difficulty. She was prepared and draped in the dorsal lithotomy position with Jay stirrups. The cervix was exposed. The anterior lip of the cervix was grasped with the Allis clamp. The cervix was noted to be dilated and accommodated the 8 mm curved curette. It was advanced all the way to the fundus, the suction was on, and with rotating motion, products of conception was retrieved , and then, a size 4 curette was used for gentle curretting of all the wall of the uterus . Then, the suction was then reintroduced and the remaining products were suctioned. Due to increased amount of bleeding from the cervix , Bimanual massage was done and Cytoec was placed per rectum. Minimal bleeding was noted from the cervical os at the end of the procedure. All instrument and pad counts were correct x2. The patient will be taken to the PACU for recovery MOHIT BARRERA /[id number] RAS
== END 2019-02-10 09:20 | disposition home or self-care (01) ==
LOC: MW.SDS 10:09 → MW.ICU 14:53 → MW.SDS 02-10 09:20
PROVIDERS: ATTEND Obstetrics & Gynecology
DX: O02.1 Missed abortion (principal); E03.9 Hypothyroidism, unspecified; F41.9 Anxiety disorder, unspecified; E66.9 Obesity, unspecified; Z68.33 Body mass index [BMI] 33.0-33.9, adult; Z91.048 Other nonmedicinal substance allergy status
CPT/HCPCS: 01965; 36415; 36430; 76857; 76857-26; 80048; 85014; 85018; 85025; 85027; 86850; 86900; 86901; 86920; 86921; 86922; 88233; 88305; A9270-GY; J1100; J1885; J2001; J2210; J2250; J2405; J2704; J3010; J3490; J7040; J7120; P9016